=== PATIENT | female | born 1955 | race Caucasian/White ===

== ENCOUNTER → 2023-02-28 15:37 | Outpatient (CLI) | payer MEDICARE, BC, SELFPAY ==
--- NOTE | 2023-02-28 15:46 | DI.US.S_ITS ---
PROCEDURE: US PELVIC COMPLETE INDICATIONS: PMB TECHNIQUE: Real-time scanning was performed of the pelvic organs, with image documentation. Additional endovaginal scanning was necessary due to incomplete visualization of the adnexal and endometrial structures by transabdominal scanning. COMPARISON: None. FINDINGS: Uterus: Uterus is retroverted and normal in size at 9.5 x 5.5 x 4.5 cm. The myometrium is homogeneous. The endometrium measures 16 mm combined thickness. There is a 5.6 x 4.3 x 5.3 cm submucosal fibroid in the mid posterior uterine wall. Echogenic foci in endometrium suggesting calcification. Ovaries: The right ovary measures 1.5 x 1.0 x 0.9 cm, with a calculated ovarian volume of 0.73 cc. The left ovary not visualized. The ovaries have a normal sonographic appearance. No adnexal masses are seen. Other: No pathologic free abdominal or pelvic fluid. IMPRESSION: 1. Thickened endometrium. In this postmenopausal woman with vaginal bleeding, endometrial cancer needs to be excluded. Recommend endometrial sampling. 2. A 5.6 x 4.3 x 5.3 cm submucosal uterine fibroid in the posterior uterine wall. 3. Foci of calcification in the endometrium, which may be secondary to prior endometrial infection or instrumentation. 4. Nonvisualization of the left ovary. No adnexal mass. 5. No free fluid in pelvis. We strive to produce accurate, complete, and clear reports of imaging services. To assist us in improving patient care, this report was composed using standard report templates and voice recognition software. Therefore, it may contain abnormal punctuation, insertions and/or omissions. Occasional wrong-word or sound-alike substitutions may occur. Though we review the report and make efforts to correct it, we do recommend that the report be read carefully in proper context to recognize any text inaccuracies. Dictated by: Medhat Holliday M.D. on 02/28/2023 at 17:39 Approved by: Medhat Holliday M.D. on 02/28/2023 at 17:45
== END ==
PROVIDERS: Referring Provider Obstetrics & Gynecology; Visit Provider Obstetrics & Gynecology
DX: N95.0 Postmenopausal bleeding (principal); R93.89 Abnormal findings on diagnostic imaging of other specified body structures; D25.0 Submucous leiomyoma of uterus; N85.8 Other specified noninflammatory disorders of uterus
CPT/HCPCS: 76856

== ENCOUNTER → 2024-01-13 14:08 | Outpatient (CLI) | payer MEDICARE, BC, SELFPAY ==
--- NOTE | 2024-01-13 14:12 | DI.RAD.S_ITS ---
Bone Density Report Name: ARIANA ANTONIO Age: 68 Sex: Female Ethnicity: White Date of : 1955 Indication: postmenopausal; screening for osteoporosis; Referring Provider: NAE TALBOT Study: Bone densitometry was performed. Exam Date: January 13, 2024 Accession number: [id number] Bone Density: Region BMD T-score Z-score Classification AP Spine(L1, L2, L3) 1.087 0.6 2.6 Normal Femoral Neck (Left) 0.795 -0.5 1.2 Normal Total Hip (Left) 0.799 -1.2 0.3 Osteopenia Femoral Neck (Right) 0.731 -1.1 0.6 Osteopenia Total Hip (Right) 0.787 -1.3 0.2 Osteopenia Total Hip Mean 0.793 -1.3 0.3 Osteopenia World Health Organization criteria for BMD impression classify patients as: Normal (T-score at or above -1.0), Osteopenia (T-score between -1.0 and -2.5), or Osteoporosis (T-score at or below -2.5). 10-year Fracture Risk(1): Major Osteoporotic Fracture 8.8% Hip Fracture 0.9% Reported Risk Factors: [place] (), Neck BMD=0.731, BMI=27.1 (1) FRAX(R) Version 3.08. Fracture probability calculated for an untreated patient. Fracture probability may be lower if the patient has received treatment. Impression: The patient has low bone mass, based on the Right Total Hip T-score. The patient has an estimated ten-year risk of hip fracture of 0.9% and an estimated ten-year risk of major fracture of 8.8%, based on the WHO FRAX algorithm. Discussion: BONE DENSITY IS LOW AT ONE OR MORE SKELETAL SITES. This patient's lowest T-score is low at one or more skeletal sites. It meets the World Health Organization's (WHO) criteria for low bone mass (T-score between -1.0 and -2.5). The patient's 10-year risk of fracture as calculated by FRAX is less than the threshold where pharmacological therapy is recommended by the National Osteoporosis Foundation (NOF). However, all treatment decisions require clinical judgment and consideration of individual patient factors, including patient preferences, comorbidities, previous drug use, risk factors not captured in the FRAX model (e.g., frailty, falls, vitamin D deficiency, increased bone turnover, interval significant decline in bone density) and possible under or overestimation of fracture risk by FRAX. The patient should follow a healthful lifestyle (good nutrition with adequate calcium and vitamin D, and appropriate weight-bearing exercise). Follow-Up: Consider repeating this study in 2 to 3 years to reassess this patient's status, or sooner if there is some new clinical indication. Reported by: JUSTIN GARCIA M.D. on 01/13/2024 2:53:00 PM.
--- NOTE | 2024-01-13 14:12 | DI.RAD.S_ITS ---
PROCEDURE: XR LUMBAR SPINE 2-3V INDICATIONS: low back pain with hx of scoliosis TECHNIQUE: 3 views of the lumbar spine were acquired. COMPARISON: None. FINDINGS: Bones: 5 hhu-rgl-[id number] vertebrae are present. There is limc-kf-[id number] levoscoliosis of lumbar spine with apex at L2 level. Degenerative endplate changes and loss of disc height throughout lumbar spine is seen. Chronic appearing superior endplate compression deformity is seen with up to 20% loss of L1 vertebral body height anteriorly. Chronic appearing mild superior endplate compression deformity at T11 and T12 levels are also seen.. No gross acute vertebral body compression fractures. No suspicious bony lesions. Soft tissues: Overlying bowel gas pattern is normal. No suspicious soft tissue calcifications. IMPRESSION: Chronic appearing anterior wedge compression deformities at T11 through L1 levels. Degenerative disc disease throughout lower thoracic and lumbar spine. Moderate levoscoliosis centered at L2 level. No definite acute vertebral body compression fracture. Dictated by: Jun Muro M.D. on 01/13/2024 at 16:06 Approved by: Jun Muro M.D. on 01/13/2024 at 16:07
== END ==
PROVIDERS: PCP Student in an Organized Health Care Education/Training Program; Referring Provider Family Medicine; Visit Provider Family Medicine
DX: S39.012A Strain of muscle, fascia and tendon of lower back, initial encounter (principal); M81.0 Age-related osteoporosis without current pathological fracture; M43.8X5 Other specified deforming dorsopathies, thoracolumbar region; M51.34 Other intervertebral disc degeneration, thoracic region; M51.36 Other intervertebral disc degeneration, lumbar region; M41.9 Scoliosis, unspecified
CPT/HCPCS: 72100; 77080

== ENCOUNTER 2024-04-12 07:20 | Day surgery (SDC) | payer MEDICARE, BC, SELFPAY ==
[2024-04-12 08:16] VITALS: BP 148/78; PULSE 80; RESP 16; TEMP 37.2; O2SAT 96
--- NOTE | 2024-04-12 08:59 | PM.HP.1 ---
History of Present Illness History of Present Illness Date Patient Seen: 04/12/24 Time Patient Seen: 08:59 Chief complaint: Dx Colonoscopy w/poss bx Narrative: colon cancer screening, no syptoms of concern. [facility] Medical History Osteopenia Melanoma Hypercholesterolemia H/O type B viral hepatitis Social History Smoking Status: Former smoker alcohol intake: current Meds Home Medications and Allergies Home Medications Medication Instructions Recorded Confirmed Type progesterone micronized 100 mg 200 mg (2 x 100 mg) PO QAM #180 07/28/23 01/11/24 Rx capsule caps estradiol 0.0375 mg/24 hr 1 patch transdermal 2XW 10/24/23 01/11/24 History semiweekly transdermal patch rosuvastatin 10 mg tablet 10 mg PO DAILY 01/02/24 01/11/24 History tizanidine 2 mg tablet 2 mg PO TID PRN muscle spasticity 01/11/24 01/11/24 Rx #30 tabs norethindrone acetate 5 mg tablet 5 mg PO DAILY #30 tabs 02/01/24 Rx Allergies Allergy/AdvReac Type Severity Reaction Status Date / Time No Known Drug Allergies Allergy Verified 01/11/24 13:59 Review of Systems Review of Systems ROS: Yes All systems reviewed with the patient and are negative except as otherwise documented Exam Vital Signs (past 8 hours): - 04/12/24 08:16 Temperature 98.9 F Pulse Rate 80 Respiratory Rate 16 Blood Pressure 148/78 H Pulse Oximetry 96 Oxygen Delivery Method Room Air Oxygen Delivery Method Room Air Const General: cooperative, healthy appearing and comfortable Nutritional Appearance: average body habitus HENMT Head: normal to inspection, normocephalic and atraumatic Eyes General: appearance normal, both eyes and all related structures Sclera: sclerae normal Neck Neck: trachea midline Resp Effort & Inspection: normal respiratory effort and able to speak in complete sentences Cardio Rate: regular rate Rhythm: regular rhythm GI Inspection: non-distended Palpation: soft Skin General: elasticity normal and turgor normal Neuro General: patient alert, patient awake and patient oriented x3 Cognition: normal cognition Speech: speech normal Psych Mental Status: mental status grossly normal Affect: normal affect Judgment: judgment good Assessment & Plan Assessment & Plan narrative: colon cancer screening using colonoscopy and anesthesia Time Spent With Patient Time with patient: less than 30 minutes
[2024-04-12] MEDS: LACTATED RINGERS 1,000 ML 42 ML IV (09:15)
--- NOTE | 2024-04-12 09:19 | PM.OP.COLON ---
Operative Date/Time/Diagnoses Date of procedure: 04/12/24 Time of procedure: 09:20 Pre-op diagnosis: Colon cancer screening Post-op diagnosis: same Procedure & Clinicians Study performed: Colonoscopy with anesthesia Same procedure as scheduled: Yes Indications: Colon cancer screening Surgeon: Cayla Meyers Procedure Notes Procedure in detail: Preop diagnosis: Colon cancer screening Postop diagnosis: Same Operative procedure: Colonoscopy with anesthesia Surgeon: Tayler Meyers MD Findings: Normal colonoscopy. No polyps no diverticulosis. Procedure: Patient placed in lateral position. Rectal exam performed showing normal tone no masses. Colonoscope inserted into the rectum and advanced to ileocecal valve minimal difficulty. Insufflation extraction of the scope and the above findings. Impression: Normal colonoscopy. No polyps Plan: Repeat colonoscopy in 10 years unless otherwise indicated by change in clinical condition or family history Specimen(s): none sent Complications: none Post-procedure Recommendations: Colonoscopy in 10 years Follow up: as needed Disposition: PACU
[2024-04-12 09:21] VITALS: BP 129/73; PULSE 82; RESP 15; TEMP 36.6; O2SAT 99
[2024-04-12 09:27] VITALS: BP 113/69; PULSE 85; RESP 21; TEMP 36.6; O2SAT 100
[2024-04-12 09:34] VITALS: BP 121/76; PULSE 83; RESP 20; TEMP 36.4; O2SAT 100
== END 2024-04-12 09:48 | disposition home or self-care (01) ==
PROVIDERS: Surgery; PCP Student in an Organized Health Care Education/Training Program; Referring Provider Surgery; Visit Provider Surgery
PROC: 0DJD8ZZ Inspection of Lower Intestinal Tract, Via Natural or Artificial Opening Endoscopic (ICD-10-PCS; CPT 45378; principal; 2024-04-12 08:15)
DX: Z12.11 Encounter for screening for malignant neoplasm of colon (principal)
CPT/HCPCS: G0121; J2704

== ENCOUNTER → 2024-04-25 07:55 | Outpatient (CLI) | payer MEDICARE, BC, SELFPAY ==
[2024-04-25 08:58] LABS: Add Manual Diff / Slide Review NO; Basophils Absolute Auto 100 /uL (0-100); Eosinophils Absolute Auto 300 /uL (0-450); Eosinophils Percent Auto 4.1 % (2-4); Hematocrit 40.4 % (36-46); Hemoglobin 13.8 g/dL (12.0-16.0); Lymphocytes Absolute Auto 2300 /uL (1100-4500); Lymphocytes Percent Auto 28.9 % (25-40); Mean Corpuscular HGB Conc 34.1 % (30-36); Mean Corpuscular Hemoglobin 32.1 PG (26-34); Mean Corpuscular Volume 94.4 fL (80-100); Monocytes Absolute Auto 700 /uL (0-900); Monocytes Percent Auto 8.1 % (3-14); Neutrophils Absolute Auto 4700 /uL (1500-7000); Neutrophils Percent Auto 57.9 % (50-75); Platelet Count 460 X10^3/uL (150-400); Red Blood Cell Count 4.29 X10^6/uL (4.0-5.2); Red Cell Distribution Width 13.5 % (11.6-14.8); White Blood Cell Count 8.1 X10^3/uL (4.5-11.0)
[2024-04-25 09:11] LABS: Hemoglobin A1C% w Est Avg Glu 5.1 % (4.0-6.0)
[2024-04-25 09:23] LABS: HEMOLYSIS < 15 (0-50); Iron 88 ug/dL (37-170)
[2024-04-25 09:30] LABS: Alanine Aminotransferase 24 IU/L (<35); Albumin 3.9 g/dL (3.5-5.0); Albumin Globulin Ratio 1.6 (1.0-2.8); Alkaline Phosphatase 60 U/L (38-126); Aspartate Aminotransferase 31 IU/L (14-36); BUN Creatinine Ratio 12.9 (6-22); Bilirubin Total 0.6 mg/dL (0.2-1.3); Blood Urea Nitrogen 11 mg/dL (7-17); Calcium 9.4 mg/dL (8.4-10.2); Carbon Dioxide 25 mmol/L (22-32); Chloride 108 mmol/L (98-107); Cholesterol 143 mg/dL (140-199); Estimated Glomerular Filt Rate > 60 mL/min (>60); Globulin 2.4 g/dL (1.7-4.1); Glucose 96 mg/dL (80-110); HDL Cholesterol 41 mg/dL (40-60); HEMOLYSIS < 15 (0-50); LDL Cholesterol Calculated 84 mg/dL (<100); Potassium 4.6 mmol/L (3.4-5.1); Sodium 138 mmol/L (137-145); Total Protein 6.3 g/dL (6.3-8.2); Triglycerides 92 mg/dL (35-150)
[2024-04-25 09:35] LABS: Percent Iron Saturation 21 % (15-50); Total Iron Binding Capacity 426 ug/dL (265-497); Transferrin 341 mg/dL (206-381)
[2024-04-25 09:54] LABS: TSH w/ Reflex to FT4 2.78 uIU/mL (0.47-4.68)
[2024-04-25 10:04] LABS: Ferritin 10 ng/mL (11-264)
== END ==
PROVIDERS: PCP Student in an Organized Health Care Education/Training Program; Referring Provider Student in an Organized Health Care Education/Training Program; Visit Provider Student in an Organized Health Care Education/Training Program
DX: Z13.29 Encounter for screening for other suspected endocrine disorder (principal); G25.81 Restless legs syndrome; Z13.1 Encounter for screening for diabetes mellitus; Z13.220 Encounter for screening for lipoid disorders; Z86.19 Personal history of other infectious and parasitic diseases
CPT/HCPCS: 36415; 80053; 80061; 82728; 83036; 83540; 83550; 84443; 85025

== ENCOUNTER 2024-08-21 13:45 | Outpatient (RCR) | payer MEDICARE, BC, SELFPAY ==
--- NOTE | 2024-07-03 16:58 | PT.OIE ---
Current Diagnoses Pain in left hip (07/03/24) Stiffness of left hip, not elsewhere classified (07/03/24) Stiffness of other specified joint, not elsewhere classified (07/03/24) Past Medical History (Last Updated 04/23/24 @ 13:10 by Viviana Raines MD) H/O type B viral hepatitis Hypercholesterolemia Melanoma Osteopenia Visit Care Team Role Provider Type Viviana Raines MD Attending Provider Physician Family Provider Primary Care Provider Referring Provider Specialty: Family Practice Obstetrics Address: [address] [place] [address], [facility] Email: [email or web address] Physical Therapy Initial Evaluation PT-OP-A Visit Information Start: 07/03/24 15:40 Freq: Status: Active Protocol: Document 07/03/24 13:45 DCW (Rec: 07/03/24 15:47 DCW [id number]) Out-Patient Physical Therapy Visit Information Visit Information Visit Type Initial Evaluation Visit Start Time 13:45 Visit Stop Time 14:30 Visit Number 1 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 Pt reports that in December, she suffered a terrible back spasm, which was so bad it was almost impossible to get out of bed. Pt reports she went to urgent care, was instructed to take NSAIDs, which didn't help. Pt then went to a chiropractor, who recommended an SI belt, which made her worse. Pt then took pain pills for a few days , pain finally got under control, and she was able to function again, but overall, pain has remained. Reports sitting longer than an hour, standing/walking for too long, orinitially getting out of bed all cause increases in pain. Swims daily, which seems to help decrease pain and help loosen her hip up. Pain typically occurs right in her posterior left hip, can wrap around to her lateral left upper leg. Prior Treatments and Tests Lumbar spine x-ray: IMPRESSION: Chronic appearing anterior wedge compression deformities at T11 through L1 levels. Degenerative disc disease throughout lower thoracic and lumbar spine. Moderate levoscoliosis centered at L2 level. No definite acute vertebral body compression fracture. per Jun Muro M.D. on 01/13/2024 PT-OP-C Subjective Start: 07/03/24 15:40 Freq: Status: Active Protocol: Document 07/03/24 13:45 DCW (Rec: 07/03/24 15:47 DCW [id number]) OP-PT Subjective Patient Comments Patient Comments I used that SI belt one day, next day I woke up so much worse. PT-OP-F Manual Assessment Start: 07/03/24 15:40 Freq: Status: Active Protocol: Document 07/03/24 13:45 DCW (Rec: 07/03/24 15:47 DCW [id number]) Manual Assessments Soft Tissue Assessment Soft Tissue Mobility Assessment Moderate tone with tenderness to palpation 3/4: wincing and withdraw along bilateral superior glutes, left piriformis, L ITB PT-OP-L Special Tests Start: 07/03/24 15:40 Freq: Status: Active Protocol: Document 07/03/24 13:45 DCW (Rec: 07/03/24 15:47 DCW [id number]) Special Tests Lumbar Spine Special Tests Vertical Spine Loading Test Results Negative Straight Leg Raise Test Results Negative Standing Flexion Test Results Negative Slump Test Results Negative Compression Test Results Negative A-P Shearing Test Results Negative Hip Special Tests Piriformis Test Results Positive Left JOSE Test Results Negative Knee Special Tests Ila's Test Test Results Positive Left PT-OP-Q Treatments Start: 07/03/24 15:40 Freq: Status: Active Protocol: Document 07/03/24 13:45 DCW (Rec: 07/03/24 15:47 DCW [id number]) Therapeutic Exercises Supine Exercises ITB Supine Exercise Name ITB stretch /c strap Side left Comments HEP Piriformis Supine Exercise Name Piriformis stretch - Figure-4, knee to opposite shoulder Side left Sidelying Exercises Reverse Clamshell Sidelying Exercise Name Reverse Clamshell Side left Comments HEP Clamshell Sidelying Exercise Name Clamshell Side left Comments HEP Sitting Exercises Piriformis Sitting Exercise Name Seated Figure-4 Comments HEP PT-OP-T Assessment and Plan Start: 07/03/24 15:40 Freq: Status: Active Protocol: Document 07/03/24 13:45 DCW (Rec: 07/03/24 16:58 DCW [id number]) Physical Therapy Assessment Rehab Potential Rehabilitation Potential Good Evaluation Complexity Number of Personal Factors/Comorbidities 1-2 Number of Body Systems Impaired 4 or More Clinical Presentation at Evaluation Stable Impairments Impairments Functional Activities, Functional Mobility,Pain,Soft Tissue Mobility,Strength,Tone Goals Three Impairment Pt experiences increased lateral left leg pain with activity Alf Goal (LTG) Pt to demonstrate reduced muscle tone in left posterior hip and ITB to mild tone in order to improve mobility and reduce pain with activity. Two Impairment PT unable to sit longer than one hour due to increased left hip pain Alf Goal (LTG) Pt to improve ability to sit for >2 hours without increased hip pain in order to increase distance pt is able to travel in a vehicle. LTG Duration 09/02/24 One Impairment Pt does not have an appropriate home exercise program Short Term Goal (STG) Pt to be independent and compliant with an appropriate HEP STG Duration 08/03/24 Assessment Summary Assessment Pt presents with signs and symptoms consistent with referring diagnosis. Pt exhibits increased tone in left lumbar paraspinals, glutes, external rotators, and FTL/ITB. Pt responded very well to stretching HEP provided at initial evaluation . Pt will likely benefit from skilled therapeutic intervention in order to reduce muscle tone, improve pain levels, and return to prior levels of function, with focus on flexibility, STM, and strengthening of hip rotators. Physical Therapy Plan Frequency and Duration Frequency of Treatment 2x/Week Plan of Care Start Date 07/03/24 Plan of Care End Date 09/02/24 Therapeutic Interventions Therapeutic Interventions Gait Training,Home Exercise Program,Joint Mobilizations, Manual Therapy,Neuromuscular Re-education,Patient/Caregiver Education,Self-Care/Home Management,Soft Tissue Mobilization,Therapeutic Activities,Therapeutic Exercises Next Visit Focus/Plan Next Note Type Treatment Note Next Visit Plan Stretching/flexibility, STM, hip strengthening
--- NOTE | 2024-07-09 16:25 | PT.OTN ---
Current Diagnoses Pain in left hip (07/09/24) Stiffness of left hip, not elsewhere classified (07/09/24) Stiffness of other specified joint, not elsewhere classified (07/09/24) Physical Therapy Treatment Note PT-OP-A Visit Information Start: 07/03/24 15:40 Freq: Status: Active Protocol: Document 07/09/24 13:16 AB (Rec: 07/09/24 14:35 AB [id number]) Out-Patient Physical Therapy Visit Information Visit Information Visit Type Treatment Note Visit Start Time 13:49 Visit Stop Time 13:32 Visit Number 2 Number of COPY CENTER SPECIALIST Visits 1 Evaluation Information Evaluation Date 07/03/24 PT-OP-B Current Condition Start: 07/03/24 15:40 Freq: Status: Active Protocol: Document 07/03/24 13:45 DCW (Rec: 07/03/24 15:55 DCW [id number]) Current Condition History of Current Condition Onset Date Multi-year history Current Complaints left low back/posterior hip pain, lateral left leg pain History of Current Condition Pt is a 69 year old female presenting with a multi-year history of low back/posterior hip pain. Pt reports that in December, she suffered a terrible back spasm, which was so bad it was almost impossible to get out of bed. Pt reports she went to urgent care, was instructed to take NSAIDs, which didn't help. Pt then went to a chiropractor, who recommended an SI belt, which made her worse. Pt then took pain pills for a few days , pain finally got under control, and she was able to function again, but overall, pain has remained. Reports sitting longer than an hour, standing/walking for too long, or initially getting out of bed all cause increases in pain. Swims daily, which seems to help decrease pain and help loosen her hip up. Pain typically occurs right in her posterior left hip, can wrap around to her lateral left upper leg. Prior Treatments and Tests Lumbar spine x-ray: IMPRESSION: Chronic appearing anterior wedge compression deformities at T11 through L1 levels. Degenerative disc disease throughout lower thoracic and lumbar spine. Moderate levoscoliosis centered at L2 level. No definite acute vertebral body compression fracture. per Jun Muro M.D. on 01/13/2024 PT-OP-C Subjective Start: 07/03/24 15:40 Freq: Status: Active Protocol: Document 07/09/24 13:16 AB (Rec: 07/09/24 14:35 AB [id number]) OP-PT Subjective Patient Comments Patient Comments Patient reports she is the same. Patient reports she has not tolerated all of the repetitions of the exercises, ie too painful. Patient comments the clamshell is the worst. Patient comments she thinks she was trying to do 3X30. PT-OP-F Manual Assessment Start: 07/03/24 15:40 Freq: Status: Active Protocol: Document 07/03/24 13:45 DCW (Rec: 07/03/24 15:47 DCW [id number]) Manual Assessments Soft Tissue Assessment Soft Tissue Mobility Assessment Moderate tone with tenderness to palpation 3/4: wincing and withdraw along bilateral superior glutes, left piriformis, L ITB PT-OP-L Special Tests Start: 07/03/24 15:40 Freq: Status: Active Protocol: Document 07/03/24 13:45 DCW (Rec: 07/03/24 15:47 DCW [id number]) Special Tests Lumbar Spine Special Tests Vertical Spine Loading Test Results Negative Straight Leg Raise Test Results Negative Standing Flexion Test Results Negative Slump Test Results Negative Compression Test Results Negative A-P Shearing Test Results Negative Hip Special Tests Piriformis Test Results Positive Left JOSE Test Results Negative Knee Special Tests Ila's Test Test Results Positive Left PT-OP-Q Treatments Start: 07/03/24 15:40 Freq: Status: Active Protocol: Document 07/09/24 13:16 AB (Rec: 07/09/24 14:35 AB [id number]) Therapeutic Exercises Supine Exercises Piriformis Supine Exercise Name Piriformis stretch - Figure-4, knee to opposite shoulder Side bilateral Reps/Minutes 60 seconds each exercise each LE Sidelying Exercises Reverse Clamshell Sidelying Exercise Name Reverse Clamshell Side bilateral Reps/Minutes X10 Comments HEP Clamshell Sidelying Exercise Name Clamshell Side bilateral Reps/Minutes X10 Comments HEP Sitting Exercises seated hip abduction Sitting Exercise Name HEP Side bilateral Resistance level 3 band latex free Reps/Minutes one minute hold X 1 Comments Patient reports symptomatic with latex Standing Exercises abdominal bracing with LE extension Reps/Minutes X8 Comments verbal cues sit to stand with band Standing Exercise Name HEP Resistance level 3 band latex free Reps/Minutes monitored for pain Manual Therapy Treatment Consent Patient gave verbal consent for manual Yes treatment Soft Tissue Mobilization STM left LE Body Location hip flexor at groin, piriformis/gluteal area Mobilization Type Cross-Friction,Rolling Intensity/Depth Moderate Body Position Sidelying Comments hooklying Joint Mobilizations left hip Joint inf Grade III Reps/Duration X10 X 3 Manual Techniques contract relax Type into hip flexion Reps/Duration X2 MET for right AI left PI and pubic shotgun Reps/Duration 6 sec X 6 each PT-OP-T Assessment and Plan Start: 07/03/24 15:40 Freq: Status: Active Protocol: Document 07/09/24 13:16 AB (Rec: 07/09/24 14:35 AB [id number]) Physical Therapy Assessment Goals Three Impairment Pt experiences increased lateral left leg pain with activity Spanish Translator Goal (LTG) Pt to demonstrate reduced muscle tone in left posterior hip and ITB to mild tone in order to improve mobility and reduce pain with activity. Two Impairment PT unable to sit longer than one hour due to increased left hip pain Prison Goal (LTG) Pt to improve ability to sit for >2 hours without increased hip pain in order to increase distance pt is able to travel in a vehicle. LTG Duration 09/02/24 One Impairment Pt does not have an appropriate home exercise program Short Term Goal (STG) Pt to be independent and compliant with an appropriate HEP STG Duration 08/03/24 Assessment Summary Assessment Tessa reports having no pain end of session. Physical Therapy Plan Frequency and Duration Frequency of Treatment 2x/Week Plan of Care Start Date 07/03/24 Plan of Care End Date 09/02/24 Next Visit Focus/Plan Next Note Type Treatment Note Next Visit Plan Stretching/flexibility, STM, hip strengthening Abdominal bracing (review) with LE extension hooklying vs standing (trial)
--- NOTE | 2024-07-17 14:30 | PT.OTN ---
Current Diagnoses Pain in left hip (07/17/24) Stiffness of left hip, not elsewhere classified (07/17/24) Stiffness of other specified joint, not elsewhere classified (07/17/24) Physical Therapy Treatment Note PT-OP-A Visit Information Start: 07/03/24 15:40 Freq: Status: Active Protocol: Document 07/17/24 13:45 DCW (Rec: 07/17/24 14:30 DCW [id number]) Out-Patient Physical Therapy Visit Information Visit Information Visit Type Treatment Note Visit Start Time 13:45 Visit Stop Time 14:30 Visit Number 3 Number of TURBINE ASSEMBLER Visits 0 Evaluation Information Evaluation Date 07/03/24 PT-OP-B Current Condition Start: 07/03/24 15:40 Freq: Status: Active Protocol: Document 07/03/24 13:45 DCW (Rec: 07/03/24 15:55 DCW [id number]) Current Condition History of Current Condition Onset Date Multi-year history Current Complaints left low back/posterior hip pain, lateral left leg pain History of Current Condition Pt is a 69 year old female presenting with a multi-year history of low back/posterior hip pain. Pt reports that in December, she suffered a terrible back spasm, which was so bad it was almost impossible to get out of bed. Pt reports she went to urgent care, was instructed to take NSAIDs, which didn't help. Pt then went to a chiropractor, who recommended an SI belt, which made her worse. Pt then took pain pills for a few days , pain finally got under control, and she was able to function again, but overall, pain has remained. Reports sitting longer than an hour, standing/walking for too long, or initially getting out of bed all cause increases in pain. Swims daily, which seems to help decrease pain and help loosen her hip up. Pain typically occurs right in her posterior left hip, can wrap around to her lateral left upper leg. Prior Treatments and Tests Lumbar spine x-ray: IMPRESSION: Chronic appearing anterior wedge compression deformities at T11 through L1 levels. Degenerative disc disease throughout lower thoracic and lumbar spine. Moderate levoscoliosis centered at L2 level. No definite acute vertebral body compression fracture. per Jun Muro M.D. on 01/13/2024 PT-OP-C Subjective Start: 07/03/24 15:40 Freq: Status: Active Protocol: Document 07/17/24 13:45 DCW (Rec: 07/17/24 14:30 DCW [id number]) OP-PT Subjective Patient Comments Patient Comments Pt feels a little bit better, admits it is hard to do HEP x2/day, but getting it done x1 /day regularly. PT-OP-F Manual Assessment Start: 07/03/24 15:40 Freq: Status: Active Protocol: Document 07/03/24 13:45 DCW (Rec: 07/03/24 15:47 DCW [id number]) Manual Assessments Soft Tissue Assessment Soft Tissue Mobility Assessment Moderate tone with tenderness to palpation 3/4: wincing and withdraw along bilateral superior glutes, left piriformis, L ITB PT-OP-L Special Tests Start: 07/03/24 15:40 Freq: Status: Active Protocol: Document 07/03/24 13:45 DCW (Rec: 07/03/24 15:47 DCW [id number]) Special Tests Lumbar Spine Special Tests Vertical Spine Loading Test Results Negative Straight Leg Raise Test Results Negative Standing Flexion Test Results Negative Slump Test Results Negative Compression Test Results Negative A-P Shearing Test Results Negative Hip Special Tests Piriformis Test Results Positive Left JOSE Test Results Negative Knee Special Tests Ila's Test Test Results Positive Left PT-OP-Q Treatments Start: 07/03/24 15:40 Freq: Status: Active Protocol: Document 07/17/24 13:45 DCW (Rec: 07/17/24 14:30 DCW [id number]) Gym Equipment Therapeutic Ball Trunk Rotation Exercise Details Resisted trunk rotation Ball Size/Color Green - 65 cm Lv 3 T-band Pelvic Tilts Exercise Details Pelvic tilts/circles Ball Size/Color Green - 65 cm Body Position Sitting Therapeutic Exercises Sidelying Exercises Hip Abduction Sidelying Exercise Name Hip Abduction Side bilateral Reverse Clamshell Sidelying Exercise Name Reverse Clamshell Side left Comments HEP Clamshell Sidelying Exercise Name Clamshell Side left Comments HEP Sitting Exercises Trunk Flexion Sitting Exercise Name Seated Trunk Flexion Manual Therapy Treatment Consent Patient gave verbal consent for manual Yes treatment Soft Tissue Mobilization STM left LE Body Location Left low back, piriformis/ gluteal area Mobilization Type Cross-Friction,Rolling Intensity/Depth Moderate Body Position Sidelying PT-OP-T Assessment and Plan Start: 07/03/24 15:40 Freq: Status: Active Protocol: Document 07/17/24 13:45 DCW (Rec: 07/17/24 14:30 DCW [id number]) Physical Therapy Assessment Impairments Impairments Functional Activities, Functional Mobility,Pain,Soft Tissue Mobility,Strength,Tone Goals Three Impairment Pt experiences increased lateral left leg pain with activity Skeiner Goal (LTG) Pt to demonstrate reduced muscle tone in left posterior hip and ITB to mild tone in order to improve mobility and reduce pain with activity. LTG Duration 09/02/24 Two Impairment PT unable to sit longer than one hour due to increased left hip pain Skeiner Goal (LTG) Pt to improve ability to sit for >2 hours without increased hip pain in order to increase distance pt is able to travel in a vehicle. LTG Duration 09/02/24 One Impairment Pt does not have an appropriate home exercise program Short Term Goal (STG) Pt to be independent and compliant with an appropriate HEP STG Duration 08/03/24 Assessment Summary Assessment Increasing compliance with HEP , pt noting improvement with hip pain, did note today her low back has felt a little more tight. Focused some today on stretching and mobility of lumbar spine. Physical Therapy Plan Frequency and Duration Frequency of Treatment 2x/Week Plan of Care Start Date 07/03/24 Plan of Care End Date 09/02/24 Therapeutic Interventions Therapeutic Interventions Gait Training,Home Exercise Program,Joint Mobilizations, Manual Therapy,Neuromuscular Re-education,Patient/Caregiver Education,Self-Care/Home Management,Soft Tissue Mobilization,Therapeutic Activities,Therapeutic Exercises Next Visit Focus/Plan Next Note Type Treatment Note Next Visit Plan Stretching/flexibility, STM, hip strengthening Abdominal bracing (review) with LE extension hooklying vs standing (trial)
--- NOTE | 2024-08-08 16:23 | PT.OTN ---
Current Diagnoses Pain in left hip (08/08/24) Stiffness of left hip, not elsewhere classified (08/08/24) Stiffness of other specified joint, not elsewhere classified (08/08/24) Physical Therapy Treatment Note PT-OP-A Visit Information Start: 07/03/24 15:40 Freq: Status: Active Protocol: Document 08/08/24 12:45 AB (Rec: 08/08/24 16:23 AB [id number]) Out-Patient Physical Therapy Visit Information Visit Information Visit Type Treatment Note Visit Note Access Code [email or web address] Visit Start Time 13:48 Visit Stop Time 14:32 Visit Number 4 Number of DIRECTOR CRITICAL CARE Visits 1 Evaluation Information Evaluation Date 07/03/24 PT-OP-B Current Condition Start: 07/03/24 15:40 Freq: Status: Active Protocol: Document 07/03/24 13:45 DCW (Rec: 07/03/24 15:55 DCW [id number]) Current Condition History of Current Condition Onset Date Multi-year history Current Complaints left low back/posterior hip pain, lateral left leg pain History of Current Condition Pt is a 69 year old female presenting with a multi-year history of low back/posterior hip pain. Pt reports that in December, she suffered a terrible back spasm, which was so bad it was almost impossible to get out of bed. Pt reports she went to urgent care, was instructed to take NSAIDs, which didn't help. Pt then went to a chiropractor, who recommended an SI belt, which made her worse. Pt then took pain pills for a few days , pain finally got under control, and she was able to function again, but overall, pain has remained. Reports sitting longer than an hour, standing/walking for too long, or initially getting out of bed all cause increases in pain. Swims daily, which seems to help decrease pain and help loosen her hip up. Pain typically occurs right in her posterior left hip, can wrap around to her lateral left upper leg. Prior Treatments and Tests Lumbar spine x-ray: IMPRESSION: Chronic appearing anterior wedge compression deformities at T11 through L1 levels. Degenerative disc disease throughout lower thoracic and lumbar spine. Moderate levoscoliosis centered at L2 level. No definite acute vertebral body compression fracture. per Jun Muro M.D. on 01/13/2024 PT-OP-C Subjective Start: 07/03/24 15:40 Freq: Status: Active Protocol: Document 08/08/24 12:45 AB (Rec: 08/08/24 16:23 AB [id number]) OP-PT Subjective Patient Comments Patient Comments Patient reports she is better, not feeling it when swimming, isn't doing the exercises every day. Patient reports she feels stiff in the morning. Patient reports her back is a little stiff, comments Rick did a bit of exercises that helped the back. PT-OP-F Manual Assessment Start: 07/03/24 15:40 Freq: Status: Active Protocol: Document 07/03/24 13:45 DCW (Rec: 07/03/24 15:47 DCW [id number]) Manual Assessments Soft Tissue Assessment Soft Tissue Mobility Assessment Moderate tone with tenderness to palpation 3/4: wincing and withdraw along bilateral superior glutes, left piriformis, L ITB PT-OP-L Special Tests Start: 07/03/24 15:40 Freq: Status: Active Protocol: Document 07/03/24 13:45 DCW (Rec: 07/03/24 15:47 DCW [id number]) Special Tests Lumbar Spine Special Tests Vertical Spine Loading Test Results Negative Straight Leg Raise Test Results Negative Standing Flexion Test Results Negative Slump Test Results Negative Compression Test Results Negative A-P Shearing Test Results Negative Hip Special Tests Piriformis Test Results Positive Left JOSE Test Results Negative Knee Special Tests Ila's Test Test Results Positive Left PT-OP-Q Treatments Start: 07/03/24 15:40 Freq: Status: Active Protocol: Document 08/08/24 12:45 AB (Rec: 08/08/24 16:23 AB [id number]) Therapeutic Exercises Supine Exercises modified Nicolás stretch Supine Exercise Name HEP Side bilateral Reps/Minutes X2 one minute holds each side Piriformis Supine Exercise Name Piriformis stretch - Figure-4, knee to opposite shoulder Side bilateral Equipment Used HEP per patient request for supine photos Reps/Minutes 60 seconds each exercise each LE Sitting Exercises seated hip abduction Sitting Exercise Name HEP Side bilateral Resistance level 4band latex free Reps/Minutes one minute hold X 1 Standing Exercises abdominal bracing with LE extension Standing Exercise Name HEP Side bilateral Reps/Minutes X10 Comments Verbal cues to brace with abdominal muscles as LE is lifted. sit to stand with band Standing Exercise Name HEP Resistance level 4 band latex free Reps/Minutes X10 Therapeutic Activity Therapeutic Activity sidelying sleep positioning Comments pillow between knees, under UE and behind back PT-OP-T Assessment and Plan Start: 07/03/24 15:40 Freq: Status: Active Protocol: Document 08/08/24 12:45 AB (Rec: 08/08/24 16:23 AB [id number]) Physical Therapy Assessment Goals Three Impairment Pt experiences increased lateral left leg pain with activity Manager Action Goal (LTG) Pt to demonstrate reduced muscle tone in left posterior hip and ITB to mild tone in order to improve mobility and reduce pain with activity. LTG Duration 09/02/24 Two Impairment PT unable to sit longer than one hour due to increased left hip pain Mcfp Goal (LTG) Pt to improve ability to sit for >2 hours without increased hip pain in order to increase distance pt is able to travel in a vehicle. LTG Duration 09/02/24 One Impairment Pt does not have an appropriate home exercise program Short Term Goal (STG) Pt to be independent and compliant with an appropriate HEP STG Duration 08/03/24 Assessment Summary Assessment Tessa reports the back feels a little stiff end of session. Patient able to progress to level four band for seated hip abd with band and sit to stand with band. Physical Therapy Plan Frequency and Duration Frequency of Treatment 2x/Week Plan of Care Start Date 07/03/24 Plan of Care End Date 09/02/24 Next Visit Focus/Plan Next Note Type Treatment Note Next Visit Plan Stretching/flexibility, STM, hip strengthening
--- NOTE | 2024-08-21 14:21 | PT.OTN ---
Current Diagnoses Pain in left hip (08/21/24) Stiffness of left hip, not elsewhere classified (08/21/24) Stiffness of other specified joint, not elsewhere classified (08/21/24) Physical Therapy Treatment Note PT-OP-A Visit Information Start: 07/03/24 15:40 Freq: Status: Active Protocol: Document 08/21/24 13:45 DCW (Rec: 08/21/24 14:21 DCW [id number]) Out-Patient Physical Therapy Visit Information Visit Information Visit Type Discharge Summary Visit Start Time 13:45 Visit Stop Time 14:15 Visit Number 5 Number of ENTRY LEVEL INSTALLATION TECHNICIAN Visits 0 Evaluation Information Evaluation Date 07/03/24 PT-OP-B Current Condition Start: 07/03/24 15:40 Freq: Status: Active Protocol: Document 07/03/24 13:45 DCW (Rec: 07/03/24 15:55 DCW [id number]) Current Condition History of Current Condition Onset Date Multi-year history Current Complaints left low back/posterior hip pain, lateral left leg pain History of Current Condition Pt is a 69 year old female presenting with a multi-year history of low back/posterior hip pain. Pt reports that in December, she suffered a terrible back spasm, which was so bad it was almost impossible to get out of bed. Pt reports she went to urgent care, was instructed to take NSAIDs, which didn't help. Pt then went to a chiropractor, who recommended an SI belt, which made her worse. Pt then took pain pills for a few days , pain finally got under control, and she was able to function again, but overall, pain has remained. Reports sitting longer than an hour, standing/walking for too long, or initially getting out of bed all cause increases in pain. Swims daily, which seems to help decrease pain and help loosen her hip up. Pain typically occurs right in her posterior left hip, can wrap around to her lateral left upper leg. Prior Treatments and Tests Lumbar spine x-ray: IMPRESSION: Chronic appearing anterior wedge compression deformities at T11 through L1 levels. Degenerative disc disease throughout lower thoracic and lumbar spine. Moderate levoscoliosis centered at L2 level. No definite acute vertebral body compression fracture. per Jun Muro M.D. on 01/13/2024 PT-OP-C Subjective Start: 07/03/24 15:40 Freq: Status: Active Protocol: Document 08/21/24 13:45 DCW (Rec: 08/21/24 14:21 DCW [id number]) OP-PT Subjective Patient Comments Patient Comments Hip reports her hip is feeling pretty good. I do have to confess that I haven't been doing great with my home exerises, I think because it's feeling better. Feels like she's doing well enough that she can discharge to independent [facility]. PT-OP-F Manual Assessment Start: 07/03/24 15:40 Freq: Status: Active Protocol: Document 07/03/24 13:45 DCW (Rec: 07/03/24 15:47 DCW [id number]) Manual Assessments Soft Tissue Assessment Soft Tissue Mobility Assessment Moderate tone with tenderness to palpation 3/4: wincing and withdraw along bilateral superior glutes, left piriformis, L ITB PT-OP-L Special Tests Start: 07/03/24 15:40 Freq: Status: Active Protocol: Document 07/03/24 13:45 DCW (Rec: 07/03/24 15:47 DCW [id number]) Special Tests Lumbar Spine Special Tests Vertical Spine Loading Test Results Negative Straight Leg Raise Test Results Negative Standing Flexion Test Results Negative Slump Test Results Negative Compression Test Results Negative A-P Shearing Test Results Negative Hip Special Tests Piriformis Test Results Positive Left JOSE Test Results Negative Knee Special Tests Ila's Test Test Results Positive Left PT-OP-Q Treatments Start: 07/03/24 15:40 Freq: Status: Active Protocol: Document 08/21/24 13:45 DCW (Rec: 08/21/24 14:21 DCW [id number]) Therapeutic Exercises Supine Exercises ITB Supine Exercise Name ITB stretch Side left Comments HEP Piriformis Supine Exercise Name Piriformis stretch - Figure-4, knee to opposite shoulder Side bilateral Sitting Exercises Trunk Flexion Sitting Exercise Name Seated Trunk Flexion, lateral trunk lean Manual Therapy Treatment Consent Patient gave verbal consent for manual Yes treatment Soft Tissue Mobilization STM left LE Body Location Left low back, piriformis/ gluteal area Mobilization Type Cross-Friction,Rolling Intensity/Depth Moderate Body Position Sidelying PT-OP-T Assessment and Plan Start: 07/03/24 15:40 Freq: Status: Active Protocol: Document 08/21/24 13:45 DCW (Rec: 08/21/24 14:21 DCW [id number]) Physical Therapy Assessment Impairments Impairments Functional Activities, Functional Mobility,Pain,Soft Tissue Mobility,Strength,Tone Goals Three Impairment Pt experiences increased lateral left leg pain with activity Penitentiary Goal (LTG) Pt to demonstrate reduced muscle tone in left posterior hip and ITB to mild tone in order to improve mobility and reduce pain with activity. LTG Duration Met Two Impairment PT unable to sit longer than one hour due to increased left hip pain Director Operating Goal (LTG) Pt to improve ability to sit for >2 hours without increased hip pain in order to increase distance pt is able to travel in a vehicle. LTG Duration Met One Impairment Pt does not have an appropriate home exercise program Short Term Goal (STG) Pt to be independent and compliant with an appropriate HEP STG Duration Met Progress Towards Goals Progress Towards Goals Goals Met Assessment Summary Assessment Pt doing very well, feeling like is has largely returned to normal, no longer experiencing any increased pain. Feeling comfortable with discharge to independent HEP at this time. Physical Therapy Plan Frequency and Duration Frequency of Treatment 2x/Week Plan of Care Start Date 07/03/24 Plan of Care End Date 09/02/24 Therapeutic Interventions Therapeutic Interventions Gait Training,Home Exercise Program,Joint Mobilizations, Manual Therapy,Neuromuscular Re-education,Patient/Caregiver Education,Self-Care/Home Management,Soft Tissue Mobilization,Therapeutic Activities,Therapeutic Exercises Discharge Physical Therapy Discharge Reasons Patient Request Next Visit Focus/Plan Next Note Type Discharge Summary Next Visit Plan Stretching/flexibility, STM, hip strengthening
== END 2024-08-24 14:22 | disposition home or self-care (01) ==
LOC: PHYS 13:45
PROVIDERS: Family Provider Student in an Organized Health Care Education/Training Program; PCP Student in an Organized Health Care Education/Training Program; Referring Provider Student in an Organized Health Care Education/Training Program; Visit Provider Student in an Organized Health Care Education/Training Program
DX: M25.552 Pain in left hip (principal); M25.69 Stiffness of other specified joint, not elsewhere classified; M25.652 Stiffness of left hip, not elsewhere classified
CPT/HCPCS: 97110; 97140; 97161

== ENCOUNTER → 2024-09-28 12:44 | Outpatient (CLI) | payer MEDICARE, BC, SELFPAY ==
[2024-09-28 15:05] LABS: HEMOLYSIS < 15 (0-50); Iron 89 ug/dL (37-170)
[2024-09-28 15:19] LABS: Percent Iron Saturation 27 % (15-50); Total Iron Binding Capacity 325 ug/dL (265-497); Transferrin 266 mg/dL (206-381)
[2024-09-28 15:42] LABS: Ferritin 36 ng/mL (11-264)
== END ==
PROVIDERS: Family Provider Student in an Organized Health Care Education/Training Program; PCP Student in an Organized Health Care Education/Training Program; Referring Provider Student in an Organized Health Care Education/Training Program; Visit Provider Student in an Organized Health Care Education/Training Program
DX: E61.1 Iron deficiency (principal); G25.81 Restless legs syndrome
CPT/HCPCS: 36415; 82728; 83540; 83550

== ENCOUNTER → 2024-10-18 13:38 | Outpatient (CLI) | payer MEDICARE, BC, SELFPAY | LOC: PHYS 13:39 | PROVIDERS: Family Provider Student in an Organized Health Care Education/Training Program; PCP Student in an Organized Health Care Education/Training Program; Referring Provider Student in an Organized Health Care Education/Training Program; Visit Provider Student in an Organized Health Care Education/Training Program | DX: R20.0 Anesthesia of skin (principal); R20.2 Paresthesia of skin | CPT/HCPCS: 95885; 95886; 95912 ==

== ENCOUNTER → 2024-11-01 09:46 | Outpatient (CLI) | payer MEDICARE, BC, SELFPAY | PROVIDERS: Family Provider Student in an Organized Health Care Education/Training Program; PCP Student in an Organized Health Care Education/Training Program; Referring Provider Student in an Organized Health Care Education/Training Program; Visit Provider Student in an Organized Health Care Education/Training Program | DX: R20.2 Paresthesia of skin (principal); R20.0 Anesthesia of skin | CPT/HCPCS: 95886; 95911 ==

== ENCOUNTER → 2024-11-27 14:06 | Outpatient (CLI) | payer MEDICARE, BC, SELFPAY ==
--- NOTE | 2024-11-27 14:08 | DI.MG.S_ITS ---
BILATERAL DIGITAL SCREENING MAMMOGRAM 3D/2D WITH CAD: 11/27/2024 CLINICAL: Routine screening. Comparison is made to exams dated: 05/13/2021 mammogram, 01/15/2019 mammogram, and 10/25/2017 mammogram - out side. The breasts are heterogeneously dense, which may obscure small masses (category c / 51-75% glandular tissue). Current study was also evaluated with a Computer Aided Detection (CAD) system. No significant masses, calcifications, or other findings are seen in either breast. There has been no significant interval change. IMPRESSION: NEGATIVE There is no mammographic evidence of malignancy. A 1 year screening mammogram is recommended. Based on the Tyrer Cuzick model (a risk assessment model) the patient's lifetime risk is 6.6% and her 10 year risk is 3.9%. According to the ACR, ACS, and NCCN guidelines, an annual breast MRI exam along with mammogram is recommended if the patient's lifetime risk is 20% or greater. This exam was interpreted at Station ID: [id number]. NOTE: For mammograms, a report in lay terms will be sent to the patient. Approximately 15% of breast malignancies will not be visualized mammographically. In the management of a palpable breast mass, a negative mammogram must not discourage biopsy of a clinically suspicious lesion. Electronically Signed By: Filipe salinas/zackary:11/27/2024 15:57:45 letter sent: Normal Exam ACR BI-RADS Category 1: Negative
== END ==
LOC: MAMMO 14:08
PROVIDERS: Family Provider Student in an Organized Health Care Education/Training Program; PCP Student in an Organized Health Care Education/Training Program; Referring Provider Student in an Organized Health Care Education/Training Program; Visit Provider Student in an Organized Health Care Education/Training Program
DX: Z12.31 Encounter for screening mammogram for malignant neoplasm of breast (principal); R92.333 Mammographic heterogeneous density, bilateral breasts
CPT/HCPCS: 77063; 77067

== ENCOUNTER → 2025-07-22 13:40 | Outpatient (CLI) | payer MEDICARE, BC, SELFPAY ==
--- NOTE | 2025-07-22 13:44 | DI.MRI.S_ITS ---
PROCEDURE: MR KNEE RT WO CON INDICATIONS: pain in right knee TECHNIQUE: Noncontrast sagittal PD fast spin echo and T2 fast spin echo with fat saturation, sagittal 3-D FLASH with fat saturation; coronal T1 spin echo and PD fast spin echo with fat saturation, and axial PD fast spin echo with fat saturation through the knee. COMPARISON: None. FINDINGS: Image quality: Excellent. Complete posterior root tear of the medial meniscus. Lateral meniscus is intact. Cruciate ligaments are intact. Full-thickness cartilage loss in the patellofemoral compartment with subchondral marrow edema like lesions and small marginal osteophytes. Quadriceps and patellar tendons are intact. Mild superficial infrapatellar bursal fluid. No knee effusion. No popliteal cyst. Medial and lateral collateral ligaments are unremarkable. No fracture or no aggressive osseous lesion. . IMPRESSION: Complete posterior root tear medial meniscus. Severe patellofemoral osteoarthritis. Mild superficial infrapatellar bursitis. Dictated by: Anjel Navarrete M.D. on 07/22/2025 at 17:53 Approved by: Anjel Navarrete M.D. on 07/22/2025 at 17:56
== END ==
PROVIDERS: Family Provider Student in an Organized Health Care Education/Training Program; PCP Student in an Organized Health Care Education/Training Program; Referring Provider Orthopaedic Surgery Adult Reconstructive Orthopaedic Surgery; Visit Provider Orthopaedic Surgery Adult Reconstructive Orthopaedic Surgery
DX: S83.241A Other tear of medial meniscus, current injury, right knee, initial encounter (principal); M17.11 Unilateral primary osteoarthritis, right knee; M71.561 Other bursitis, not elsewhere classified, right knee; M25.561 Pain in right knee
CPT/HCPCS: 73721